=== PATIENT | female | born 1960 | race Caucasian/White ===

== ENCOUNTER 2019-01-30 08:57 | Emergency (ER) | payer OTHER ==
--- NOTE | 2019-01-30 09:09 | PDOC ---
History of Present Illness - General Chief Complaint: CVA/TIA Stated Complaint: LEFT SIDE NUMBNESS Time Seen by Provider: 01/30/19 08:59 History Source: Patient Exam Limitations: No Limitations - History of Present Illness Initial Comments: 58 yo F history HTN presents with L sided body pains for the past ~1 year. She states that she gets "tension" in her neck at times, for which she sees a chiropractor. She states that she has had intermittent pain to the L side of her face, radiates down the left side of her body. She has not sought evaluation for it. She states that last night she developed pain in her left arm that she had not had in the past and became concerned. She looked it up online and expresses concern she may have a blockage somewhere. NIH Stroke Scale - Initial Evaluation Level of consciousness: Alert Ask patient the month and their age: Answers both correctly Ask patient to open & close eyes; make fist and let go: Obeys both correctly Best gaze (horizontal eye movement): Normal Visual field testing: No visual field loss Facial paresis (Show teeth/raise eyebrows/close eyes tight): Normal symmetrical movement Motor Function: Left Arm: Normal Motor Function: Right Arm: Normal (extends arm 90 (or 45) degrees for 10 seconds without drift Motor Function: Left Leg: Normal (extends leg 30 degrees for 5 seconds without drift) Motor Function: Right Leg: Normal (extends leg 30 degrees for 5 seconds without drift) Limb Ataxia: No ataxia Sensory(Use pinprick test arms,legs,trunk,face/side to side): Normal Best language (Describe picture, name items, read sentences): No Aphasia Dysarthria (read several words): Normal articulation Extinction and Inattention: No abnormality - Total Score NIH Stroke Scale Score: 0 Past History - Past Medical History Allergies/Adverse Reactions: Allergies Allergy/AdvReac Type Severity Reaction Status Date / Time amoxicillin [From Augmentin] Allergy Verified 01/30/19 09:04 clavulanic acid Allergy Verified 01/30/19 09:04 [From Augmentin] Home Medications: Ambulatory Orders Cholecalciferol (Vitamin D3) [Vitamin D3] 4,000 unit PO DAILY 01/30/19 Cyanocobalamin (Vitamin B-12) [Vitamin B12] 2,500 mcg PO DAILY 01/30/19 Lisinopril 25 mg PO DAILY 01/30/19 Review of Systems - Review of Systems Able to Perform ROS?: Yes Comments:: GENERAL/CONSTITUTIONAL: No fever or chills. No weakness. HEAD, EYES, EARS, NOSE AND THROAT: No change in vision. No ear pain or discharge. No sore throat. CARDIOVASCULAR: No chest pain or shortness of breath. RESPIRATORY: No cough, wheezing, or hemoptysis. GASTROINTESTINAL: No nausea, vomiting, diarrhea or constipation. GENITOURINARY: No dysuria, frequency, or change in urination. MUSCULOSKELETAL: +L arm and face pain. No neck or back pain. SKIN: No rash. NEUROLOGIC: No headache, vertigo, loss of consciousness, or change in strength/ sensation. ENDOCRINE: No increased thirst. No abnormal weight change. HEMATOLOGIC/LYMPHATIC: No anemia, easy bleeding, or history of blood clots. ALLERGIC/IMMUNOLOGIC: No hives or skin allergy. *Physical Exam - Physical Exam Comments: GENERAL: Awake, alert, and fully oriented, in no acute distress HEAD: No signs of trauma EYES: PERRLA, EOMI, sclera anicteric, conjunctiva clear ENT: Auricles normal inspection, hearing grossly normal, nares patent, oropharynx clear without exudates. Moist mucosa NECK: Normal ROM, supple, no lymphadenopathy, JVD, or masses LUNGS: Breath sounds equal, clear to auscultation bilaterally. No wheezes, and no crackles HEART: Regular rate and rhythm, normal S1 and S2, no murmurs, rubs or gallops ABDOMEN: Soft, nontender, normoactive bowel sounds. No guarding, no rebound. No masses EXTREMITIES: Normal range of motion, no edema. No clubbing or cyanosis. No cords, erythema, or tenderness NEUROLOGICAL: Cranial nerves II through XII grossly intact. Normal speech, normal gait. Motor and sensation intact SKIN: Warm, Dry, normal turgor, no rashes or lesions noted. Heart Score/ECG Review - History History: Slightly suspicious - Electrocardiogram EKG: Normal - Age Age: 45-65 - Risk Factors Risk Factors Heart Score: Yes Hx Hypertension, Yes Positive family hx of cardiac disease Based on the list above the patient has:: 1-2 risk factors - Troponin Troponin: </= normal limit - Score Heart Score - Total: 2 - ECG Impressions Comment:: EKG read 09:28- NSR 63 bpm, no acute ST/T changes ED Treatment Course - LABORATORY CBC & Chemistry Diagram: 01/30/19 09:15 01/30/19 09:15 Medical Decision Making - Medical Decision Making 01/30/19 09:46 Pt with chronic intermittent pain to the left side of her body which has not been evaluated in the past. Now with pain in the left arm which is new. She states that her family has history of heart disease, so she became concerned. She also read online that she might have a blockage in her leg. I explained that her symptoms are very atypical for ACS if they have been chronic. They are also atypical for an arterial blockage, as she would have lost her limb if it had been occurring for a year. Also, there are no signs of poor circulation. Normal color to the toes, normal cap refill, no swelling. She does not have the pain that would normally go with an arterial occlusion, as well. No claudication with ambulation. Will obtain one set of cardiac enzymes, EKG, and will CT her head as the symptoms have been ongoing for a long time. There are no deficits, this is more pain than sensation loss or weakness. Likely DC home with neuro f/u. *DC/Admit/Observation/Transfer Diagnosis at time of Disposition: Face pain, Pain of left side of body - Discharge Dispostion Disposition: HOME Condition at time of disposition: Stable Decision to Admit order: No - Referrals Referrals: Geoff Slater MD [Staff Physician] - - Patient Instructions Printed Discharge Instructions: DI for Arm Pain - Post Discharge Activity
[2019-01-30 09:15] VITALS: TEMP 98.6; BMI 29.0
[2019-01-30 09:31] LABS: BASO % 1.3 % (0-2.0); EOS % 6.9 % (0-4.5); HEMATOCRIT 40.6 % (32.4-45.2); HEMOGLOBIN 13.5 GM/dl (10.7-15.3); LYMPH % 28.8 % (8-40); MCH 29.1 pg (25.7-33.7); MCHC 33.2 g/dl (32.0-36.0); MEAN CELL VOLUME 87.9 fl (80-96); MEAN PLT VOLUME 8.6 fl (7.5-11.1); MONO % 8.7 % (3.8-10.2); NEUT % 54.3 % (42.8-82.8); PLATELET COUNT 275 K/MM3 (134-434); RBC 4.62 M/mm3 (3.60-5.2); RDW 11.9 % (11.6-15.6); WHITE BLOOD COUNT 4.7 K/mm3 (4.0-10.8)
[2019-01-30 09:47] LABS: ALBUMIN 4.3 g/dl (3.4-5.0); ALK PHOS 68 U/L (45-117); ANION GAP 7 MMOL/L (8-16); BILIRUBIN,TOTAL 0.8 mg/dl (0.2-1); BLOOD UREA NITROGEN 18 mg/dl (7-18); CALCIUM 9.2 mg/dl (8.5-10); CHLORIDE 102 mmol/L (98-107); CO2 26 mmol/L (21-32); CREATININE 0.6 mg/dl (0.55-1.3); GLUCOSE,RANDOM 101 mg/dl (74-106); SGOT/AST 23 U/L (15-37); SGPT/ALT 20 U/L (13-61); SODIUM 135 mmol/L (136-145); TOT PROT 7.2 g/dl (6.4-8.2)
[2019-01-30 10:14] LABS: POTASSIUM 4.1 mmol/L (3.5-5.1)
[2019-01-30 11:05] VITALS: BP 116/74; PULSE 73
--- NOTE | 2019-01-30 16:28 | EKG ---
Test Reason : Blood Pressure : / mmHG Vent. Rate : 063 BPM Atrial Rate : 063 BPM P-R Int : 164 ms QRS Dur : 100 ms QT Int : 410 ms P-R-T Axes : 056 038 049 degrees QTc Int : 419 ms NORMAL SINUS RHYTHM NORMAL ECG WHEN COMPARED WITH ECG OF 13-FEB-2005 08:43, NO SIGNIFICANT CHANGE WAS FOUND Confirmed by JAMAL MACDONALD MD ([id number]) on 01/30/2019 4:27:38 PM Referred By: VISHAL ALARCON Confirmed By:JAMAL MACDONALD MD
== END 2019-01-30 10:26 | disposition home or self-care (01) ==
LOC: FER 08:57
DX: R51 Headache (principal); R52 Pain, unspecified; M79.602 Pain in left arm; Z88.0 Allergy status to penicillin; Z88.8 Allergy status to other drugs, medicaments and biological substances
CPT/HCPCS: 36415; 70450-TC; 80053; 82550; 84484; 85025; 93005; 99284-25

== ENCOUNTER 2021-08-31 16:52 | Emergency (ER) | payer OTHER ==
[2021-08-31 17:24] VITALS: TEMP 99; BMI 29.7
[2021-08-31 18:26] LABS: ACTIVATED PTT 29.6 SECONDS (25.2-36.5)
[2021-08-31 18:29] LABS: ALBUMIN 4.5 g/dl (3.4-5.0); BILIRUBIN,TOTAL 0.5 mg/dl (0.2-1); CALCIUM 9.6 mg/dl (8.5-10); CREATININE 0.6 mg/dl (0.55-1.3); TOT PROT 7.4 g/dl (6.4-8.2)
[2021-08-31 18:30] LABS: INR 1.05 (0.82-1.09); PROTHROMBIN TIME (PATIENT) 11.6 SEC (10.2-13.0)
[2021-08-31 18:33] LABS: CHOLESTEROL 222 mg/dl (50-200); HDL CHOLESTEROL 58 mg/dl (40-60); LDL CHOLESTEROL (ONLY DFH) 140 mg/dl (5-100); TRIGLYCERIDES 120 mg/dl (0-150)
[2021-08-31 19:00] VITALS: BP 143/80; PULSE 71
[2021-08-31 19:06] LABS: BASO % 0.9 % (0-2.0); EOS % 4.3 % (0-4.5); HEMATOCRIT 38.4 % (32.4-45.2); LYMPH % 27.8 % (8-40); MCH 29.4 pg (25.7-33.7); MCHC 33.9 g/dl (32.0-36.0); MEAN CELL VOLUME 86.7 fl (80-96); MEAN PLT VOLUME 8.3 fl (7.5-11.1); MONO % 6.2 % (3.8-10.2); NEUT % 60.8 % (42.8-82.8); PLATELET COUNT 284 10^3/uL (134-434); RBC 4.43 M/mm3 (3.60-5.2); WHITE BLOOD COUNT 7.7 K/mm3 (4.0-10.0)
[2021-08-31] MEDS ORDERED: ASPIRIN 81 MG CHEWABLE TABLETS PO ONE (20:53)
[2021-08-31] MEDS ORDERED: ASPIRIN COATED 81 MG TABLET.EC ONE (20:58)
== END 2021-08-31 21:05 | disposition home or self-care (01) ==
LOC: FER 16:52
DX: R29.810 Facial weakness (principal); R20.2 Paresthesia of skin
CPT/HCPCS: 36415; 70450-TC; 80053; 80061; 81003; 81015; 82550; 83036; 84484; 85025; 85610; 85730; 86618; 86850; 86900; 86901; 93005; 99285-25

== ENCOUNTER 2022-04-11 15:13 | Emergency (ER) | payer BC ==
[2022-04-11 15:29] VITALS: BP 136/87; PULSE 107; TEMP 99.7; BMI 29.9
[2022-04-11] MEDS ORDERED: BEBTELOVIMAB (EUA) 175 MG/2 ML VIAL IVPUSH ONE (16:15)
== END 2022-04-11 18:37 | disposition home or self-care (01) ==
LOC: JER 15:13
DX: Z20.822 Contact with and (suspected) exposure to COVID-19 (principal)
CPT/HCPCS: 96374; 99283-25; M0222; Q0222

== ENCOUNTER 2023-11-14 09:37 | Emergency (ER) | payer BC ==
[2023-11-14 09:48] VITALS: BMI 31.3
[2023-11-14 12:11] LABS: URINE APPEARANCE CLEAR; URINE BILIRUBIN NEGATIVE (NEGATIVE); URINE COLOR YELLOW; URINE GLUCOSE (UA) NEGATIVE (NEGATIVE); URINE KETONE NEGATIVE (NEGATIVE); URINE LEUK ESTERASE NEGATIVE (NEGATIVE); URINE NITRITE NEGATIVE (NEGATIVE); URINE PROTEIN NEGATIVE (NEGATIVE); URINE UROBILINOGEN 0.2 mg/dL (0.2-1.0)
[2023-11-14 12:15] LABS: BASO % 0.7 % (0-2.0); EOS % 5.5 % (0-4.5); HEMATOCRIT 41.1 % (32.4-45.2); HEMOGLOBIN 13.8 GM/dL (10.7-15.3); LYMPH % 21.4 % (8-40); MCH 29.1 pg (25.7-33.7); MCHC 33.5 g/dl (32.0-36.0); MEAN CELL VOLUME 86.9 fl (80-96); MEAN PLT VOLUME 8.2 fl (7.5-11.1); MONO % 5.2 % (3.8-10.2); NEUT % 67.2 % (42.8-82.8); PLATELET COUNT 291 10^3/uL (134-434); RBC 4.74 M/mm3 (3.60-5.2); RDW 12.9 % (11.6-15.6); WHITE BLOOD COUNT 7.8 K/mm3 (4.0-10.0)
[2023-11-14 12:52] LABS: POTASSIUM 4.3 mmol/L (3.5-5.1)
[2023-11-14 12:55] LABS: ALBUMIN 4.4 g/dl (3.4-5.0); BLOOD UREA NITROGEN 14.9 mg/dL (7-18); MAGNESIUM 2.1 mg/dL (1.8-2.4)
[2023-11-14 12:58] LABS: CREATININE 0.7 mg/dL (0.55-1.3)
[2023-11-14 12:59] LABS: BILIRUBIN,TOTAL 0.5 mg/dL (0.2-1); TOT PROT 8.2 g/dl (6.4-8.2)
[2023-11-14 13:35] VITALS: BP 148/70; PULSE 87; RESP 20; TEMP 98.1
== END 2023-11-14 15:36 | disposition home or self-care (01) ==
LOC: JER 09:37
DX: I10 Essential (primary) hypertension (principal); R42 Dizziness and giddiness; Z20.822 Contact with and (suspected) exposure to COVID-19
CPT/HCPCS: 0241U-QW; 36415; 70450-TC; 71046-TC-FY; 80053; 81003; 83735; 84484; 85025; 87086; 93005; 93010; 99285-25

== ENCOUNTER 2025-02-13 08:19 | Emergency (ER) | payer BC ==
[2025-02-13 08:27] VITALS: BP 160/92; PULSE 95; RESP 20; TEMP 98.1; BMI 31.3
[2025-02-13 09:40] LABS: ABSOLUTE IMMATURE GRANULOCYTES 0.03 x10^3/uL (0.0-0.031); BASOPHILS # 0.06 x10^3/uL (0.01-0.08); EOSINOPHIL % 8.6 % (0.7-5.8); HEMATOCRIT 41.2 % (34.1-44.9); HEMOGLOBIN 13.6 g/dL (11.2-15.7); MEAN CELL VOLUME 86.7 fl (79.4-94.8); MEAN PLT VOLUME 9.3 fl (9.4-12.3); MONOCYTE # 0.67 x10^3/uL (0.24-0.86); MONOCYTE % 8.2 % (4.7-12.5); PLATELET COUNT 270 x10^3/uL (182-369); RDW 11.9 % (12.4-16.4)
[2025-02-13 09:47] LABS: INR 1.04 (0.83-1.09); PROTHROMBIN TIME (PATIENT) 11.4 SEC (9.7-13.0)
[2025-02-13 09:49] LABS: ACTIVATED PTT 31.9 SECONDS (25.2-36.5)
[2025-02-13 10:02] LABS: POTASSIUM 3.7 mmol/L (3.5-5.1)
[2025-02-13 10:04] LABS: BLOOD UREA NITROGEN 17.6 mg/dL (7-18); CALCIUM 9.5 mg/dL (8.5-10.1); MAGNESIUM 2.2 mg/dL (1.8-2.4)
[2025-02-13 10:07] LABS: CREATININE 0.8 mg/dL (0.55-1.3)
[2025-02-13 10:09] LABS: BILIRUBIN,TOTAL 0.2 mg/dL (0.2-1); TOT PROT 7.5 g/dl (6.4-8.2)
== END 2025-02-13 15:13 | disposition home or self-care (01) ==
LOC: JER 08:19
DX: R07.9 Chest pain, unspecified (principal); G89.29 Other chronic pain; R06.02 Shortness of breath; R05.9 Cough, unspecified; R09.3 Abnormal sputum
CPT/HCPCS: 0241U-QW; 36415; 71275-TC; 80053; 83735; 84484; 85025; 85610; 85730; 93005; 93010; 99285-25; Q9967